=== PATIENT | female | born 1955 | race Caucasian/White ===

== ENCOUNTER 2018-09-18 07:40 | Observation (INO) | payer BC ==
[2018-09-18] MEDS ORDERED: Sodium Chloride 0.9% 10 ML Syringe FLUSH PRN ×2 (07:59→09:25)
[2018-09-18] MEDS ORDERED: Diltiazem 25 MG/5 ML SDV IVPUSH ONE (08:21)
--- NOTE | 2018-09-18 08:21 | CR ---
[id number] RAD/RAD Chest PA And Lateral EXAM: RAD Chest PA And Lateral CLINICAL DATA: SHORTNESS OF BREATH. COUGH. COMPARISON: NO PREVIOUS SIMILAR EXAM IS AVAILABLE. FINDINGS: Surgical clips are seen in the right axillary region. The pulmonary arteries are prominent. The lungs are clear. The cardiomediastinal contour is normal. The regional bones and soft tissues are unremarkable. IMPRESSION: NO ACUTE PROCESS. Dewey Holden MD 09/18/18 0819 Thank you for allowing us to participate in the care of your patient.
--- NOTE | 2018-09-18 08:26 | EDM.PDOC ---
ED HPI GENERAL MEDICAL PROBLEM - General Chief Complaint: Respiratory Problem Stated Complaint: shortness of breath Time Seen by Provider: 09/18/18 08:00 Source of Information: Reports: Patient History Limitations: Reports: No Limitations - History of Present Illness INITIAL COMMENTS - FREE TEXT/NARRATIVE: 63 YO WF presents to ER with shortness of breath and chest tightness which began this am. Pt reports she used her albuterol inhaler and states she thinks it made her breathing worse. Pt states she's had a URI for the last couple of weeks but thought it had resolved prior to this mornings episode. Pt reports chest tightness and some lightheadedness but denies diaphoresis or nausea/ vomiting. Pt denies fever/chills or productive cough. Onset: Today Location: Reports: Chest Quality: Reports: Other (tightness) Improves with: Reports: None Worsens with: Reports: Medication Associated Symptoms: Reports: Chest Pain, Shortness of Breath. Denies: Cough, cough w sputum, Diaphoresis, Fever/Chills, Nausea/Vomiting, Syncope Treatments GROUP CONTRACT ANALYST: Reports: Other Medication(s) Other Treatments GROUP CONTRACT ANALYST: Albuterol - Related Data Allergies Allergy/AdvReac Type Severity Reaction Status Date / Time erythromycin base Allergy Other Verified 09/18/18 07:55 Home Meds: Home Meds Albuterol Sulfate [Albuterol Sulfate Hfa] 2 puff INH Q4H PRN 09/18/18 [History] Social & Family History - Tobacco Use Smoking Status *Q: Current Some Day Smoker Years of Tobacco use: 40 Packs/Tins Daily: 0.2 Used Tobacco, but Quit: No Second Hand Smoke Exposure: No - Caffeine Use Caffeine Use: Reports: Coffee, Tea - Recreational Drug Use Recreational Drug Use: No ED ROS GENERAL - Review of Systems Review Of Systems: See Below Constitutional: Reports: No Symptoms HEENT: Reports: No Symptoms Respiratory: Reports: Shortness of Breath Cardiovascular: Reports: Chest Pain, Lightheadedness. Denies: Palpitations Endocrine: Reports: No Symptoms GI/Abdominal: Reports: No Symptoms : Reports: No Symptoms Musculoskeletal: Reports: No Symptoms Skin: Reports: No Symptoms Neurological: Reports: No Symptoms Psychiatric: Reports: No Symptoms Hematologic/Lymphatic: Reports: No Symptoms Immunologic: Reports: No Symptoms ED EXAM, GENERAL - Physical Exam Exam: See Below Exam Limited By: No Limitations General Appearance: Alert, WD/WN, No Apparent Distress Head: Atraumatic, Normocephalic Neck: Normal Inspection, Supple, Non-Tender, Full Range of Motion Respiratory/Chest: No Respiratory Distress, Lungs Clear, Normal Breath Sounds, No Accessory Muscle Use, Chest Non-Tender Cardiovascular: Normal Peripheral Pulses, No Edema, No Gallop, No JVD, No Murmur , No Rub, Tachycardia, Irregularly Irregular GI/Abdominal: Normal Bowel Sounds, Soft, Non-Tender, No Organomegaly, No Distention, No Abnormal Bruit, No Mass Back Exam: Normal Inspection, Full Range of Motion, NT Extremities: Normal Inspection, Normal Range of Motion, Non-Tender, Normal Capillary Refill, No Pedal Edema Neurological: Alert, Oriented, CN II-XII Intact, Normal Cognition, Normal Gait, Normal Reflexes, No Motor/Sensory Deficits Psychiatric: Normal Affect, Normal Mood Skin Exam: Warm, Dry, Intact, Normal Color, No Rash Lymphatic: No Adenopathy EKG INTERPRETATION EKG Date: 09/18/18 Time: 08:03 Rhythm: A-Fib Rate (Beats/Min): 118 [place]: Normal P-Wave: Absent QRS: Normal ST-T: Normal QT: Normal Comparison: NA - No Prior EKG Course - Vital Signs Last Recorded V/S: Last Vital Signs Temp 36.5 C 09/18/18 07:50 Pulse 92 09/18/18 09:00 Resp 20 09/18/18 07:50 BP 110/47 L 09/18/18 09:00 Pulse Ox 94 L 09/18/18 09:00 - Orders/Labs/Meds Orders: Active Orders 24 hr Category Date Time Status EKG Documentation Completion [RC] ASDIRECTED Care 09/18/18 08:00 Active EKG Documentation Completion [RC] ASDIRECTED Care 09/18/18 08:44 Ordered Peripheral IV Care [RC] . DIRECTED Care 09/18/18 08:00 Active Diltiazem 125 MG in NS 125 ML @ 5 MG/HR (100ml) Med 09/18/18 08:45 Ordered Diltiazem 125 mg Sodium Chloride 0.9% [Normal Saline] 100 ml IV TITRATE Sodium Chloride 0.9% [Saline Flush] Med 09/18/18 07:59 Active 10 ml FLUSH Q8HR PRN Peripheral IV Insertion Adult [OM.PC] Routine Oth 09/18/18 07:59 Ordered EKG 12 Lead [EK] Routine Ther 09/18/18 07:59 Ordered EKG 12 Lead [EK] Routine Ther 09/18/18 08:44 Ordered Medication Orders Diltiazem HCl 125 mg/ Sodium (Chloride) 125 mls @ 5 mls/hr IV TITRATE JOVANY; Protocol Sodium Chloride (Saline Flush) 10 ml FLUSH Q8HR PRN PRN Reason: keep vein open Last Admin: 09/18/18 08:42 Dose: 10 ml Labs: Laboratory Tests 09/18/18 09/18/18 09/18/18 Range/Units 08:05 08:05 08:05 WBC 11.29 H (5.00-10.00) 10^3/uL RBC 5.42 (3.80-5.50) 10^6/uL Hgb 16.2 H (12.0-16.0) g/dL Hct 51.8 H (37.0-47.0) % MCV 95.6 H (82.0-92.0) fL MCH 29.9 (27.0-31.0) pg MCHC 31.3 L (32.0-36.0) g/dL RDW 13.3 (11.5-14.5) % Plt Count 284 (150-400) 10^3/uL MPV 9.6 (7.4-10.4) fL Immature Gran % (Auto) 0.3 (0.0-5.0) % Neut % (Auto) 65.1 (50.0-70.0) % Lymph % (Auto) 26.1 (20.0-40.0) % [place] % (Auto) 7.5 (2.0-8.0) % Eos % (Auto) 0.8 L (1.0-3.0) % Baso % (Auto) 0.2 (0.0-1.0) % Immature Gran # (Auto) 0.03 (0.00-0.50) 10^3/uL Neut # (Auto) 7.35 H (2.50-7.00) 10^3/uL Lymph # (Auto) 2.95 (1.00-4.00) 10^3/uL [place] # (Auto) 0.85 H (0.10-0.80) 10^3/uL Eos # (Auto) 0.09 L (0.10-0.30) 10^3/uL Baso # (Auto) 0.02 (0.00-0.10) 10^3/uL PT 10.3 (8.9-11.4) SEC INR 1.0 (0.9-1.1) APTT 24.1 (23.1-31.9) SEC Sodium 144 (136-145) mmol/L Potassium 3.3 (3.3-5.3) mmol/L Chloride 103 (98-115) mmol/L Carbon Dioxide 33.1 H (21.0-32.0) mmol/L Anion Gap 11.2 (5-15) mmol/L BUN 20 (6-25) mg/dL Creatinine 1.05 (0.51-1.17) mg/dL Est Cr Clr Drug Dosing 51.94 mL/min Estimated GFR (MDRD) 53 mL/min Glucose 104 H (75 - 99) mg/dL Calcium 8.6 L (8.7-10.3) mg/dL Total Bilirubin 0.3 (0.2-1.0) mg/dL AST 16 (15-37) U/L ALT 23 (12-78) U/L Alkaline Phosphatase 88 (46-116) IU/L Creatine Kinase 48 (26-276) U/L CK-MB (CK-2) 1.20 (0.00-4.30) ng/mL Troponin I 0.04 (0.00-0.070) ng/mL B-Natriuretic Peptide (0-100) pg/mL Total Protein 6.8 (6.4-8.2) g/dL Albumin 3.35 (3.00-4.80) g/dL 09/18/18 Range/Units 08:22 WBC (5.00-10.00) 10^3/uL RBC (3.80-5.50) 10^6/uL Hgb (12.0-16.0) g/dL Hct (37.0-47.0) % MCV (82.0-92.0) fL MCH (27.0-31.0) pg MCHC (32.0-36.0) g/dL RDW (11.5-14.5) % Plt Count (150-400) 10^3/uL MPV (7.4-10.4) fL Immature Gran % (Auto) (0.0-5.0) % Neut % (Auto) (50.0-70.0) % Lymph % (Auto) (20.0-40.0) % [place] % (Auto) (2.0-8.0) % Eos % (Auto) (1.0-3.0) % Baso % (Auto) (0.0-1.0) % Immature Gran # (Auto) (0.00-0.50) 10^3/uL Neut # (Auto) (2.50-7.00) 10^3/uL Lymph # (Auto) (1.00-4.00) 10^3/uL [place] # (Auto) (0.10-0.80) 10^3/uL Eos # (Auto) (0.10-0.30) 10^3/uL Baso # (Auto) (0.00-0.10) 10^3/uL PT (8.9-11.4) SEC INR (0.9-1.1) APTT (23.1-31.9) SEC Sodium (136-145) mmol/L Potassium (3.3-5.3) mmol/L Chloride (98-115) mmol/L Carbon Dioxide (21.0-32.0) mmol/L Anion Gap (5-15) mmol/L BUN (6-25) mg/dL Creatinine (0.51-1.17) mg/dL Est Cr Clr Drug Dosing mL/min Estimated GFR (MDRD) mL/min Glucose (75 - 99) mg/dL Calcium (8.7-10.3) mg/dL Total Bilirubin (0.2-1.0) mg/dL AST (15-37) U/L ALT (12-78) U/L Alkaline Phosphatase (46-116) IU/L Creatine Kinase (26-276) U/L CK-MB (CK-2) (0.00-4.30) ng/mL Troponin I (0.00-0.070) ng/mL B-Natriuretic Peptide 83 (0-100) pg/mL Total Protein (6.4-8.2) g/dL Albumin (3.00-4.80) g/dL Meds: Medications Generic Name Dose Route Start Last Admin Trade Name Freq PRN Reason Stop Dose Admin Diltiazem HCl 125 mg/ Sodium 125 mls @ 5 mls/hr 09/18/18 08:45 Chloride IV TITRATE JOVANY Protocol 5 MG/HR Sodium Chloride 10 ml 09/18/18 07:59 09/18/18 08:42 Saline Flush FLUSH 10 ml Q8HR PRN Administration keep vein open Discontinued Medications Generic Name Dose Route Start Last Admin Trade Name Freq PRN Reason Stop Dose Admin Diltiazem HCl 20 mg 09/18/18 08:21 09/18/18 08:35 Diltiazem IVPUSH 09/18/18 08:22 20 mg ONETIME ONE Administration - Radiology Interpretation Free Text/Narrative:: CXR- NAD - Re-Assessments/Exams Free Text/Narrative Re-Assessment/Exam: 09/18/18 08:45 after cardizem 20mg IV pt HR-81 BP-110/60 and Pt asymptomatic Departure - Departure Time of Disposition: 09:22 Disposition: Refer to Observation Condition: Fair Clinical Impression: Atrial fibrillation Qualifiers: Atrial fibrillation type: persistent Qualified Code(s): I48.1 - Persistent atrial fibrillation - Discharge Information Referrals: PCP,None [Primary Care Provider] - Forms: ED Department Discharge - My Orders Last 24 Hours: My Active Orders 09/18/18 07:59 Sodium Chloride 0.9% [Saline Flush] 10 ml FLUSH Q8HR PRN Peripheral IV Insertion Adult [OM.PC] Routine EKG 12 Lead [EK] Routine 09/18/18 08:00 EKG Documentation Completion [RC] ASDIRECTED Peripheral IV Care [RC] . DIRECTED 09/18/18 08:44 EKG Documentation Completion [RC] ASDIRECTED EKG 12 Lead [EK] Routine 09/18/18 08:45 Diltiazem 125 MG in NS 125 ML @ 5 MG/HR (100ml) Diltiazem 125 mg Sodium Chloride 0.9% [Normal Saline] 100 ml IV TITRATE - Assessment/Plan Last 24 Hours: My Active Orders 09/18/18 07:59 Sodium Chloride 0.9% [Saline Flush] 10 ml FLUSH Q8HR PRN Peripheral IV Insertion Adult [OM.PC] Routine EKG 12 Lead [EK] Routine 09/18/18 08:00 EKG Documentation Completion [RC] ASDIRECTED Peripheral IV Care [RC] . DIRECTED 09/18/18 08:44 EKG Documentation Completion [RC] ASDIRECTED EKG 12 Lead [EK] Routine 09/18/18 08:45 Diltiazem 125 MG in NS 125 ML @ 5 MG/HR (100ml) Diltiazem 125 mg Sodium Chloride 0.9% [Normal Saline] 100 ml IV TITRATE Assessment:: 1. Afib RVR- controlled after cardizem 20mg IV x 1 Plan: 1. admit to obs- Dr Gold 2. cardizem 30mg PO Q6 3. supportive care 4. telemetry
[2018-09-18] MEDS ORDERED: Diltiazem 125 MG in Sodium Chloride 0.9% 100 ML IV SCH (08:45)
[2018-09-18 09:08] LABS: ANION GAP 11.2 mmol/L (5-15)
[2018-09-18] MEDS ORDERED: Diltiazem IR 30 MG Tab PO SCH (11:00)
[2018-09-18] MEDS ORDERED: Lidocaine 2% 100 MG/5 ML Syringe IVPUSH PRN (12:04)
[2018-09-18] MEDS ORDERED: Atropine 0.1 MG/ML 10 ML Syringe IVPUSH PRN (12:04)
[2018-09-18] MEDS ORDERED: Nitroglycerin 0.4 MG Tab.SL SL PRN (12:04)
[2018-09-18] MEDS ORDERED: EPINEPHrine 1:10,000 1 MG/10 ML Syringe IVPUSH PRN (12:04)
[2018-09-18] MEDS: Aspirin 325 MG Tab.EC PO SCH (17:40)
[2018-09-19 07:46] LABS: ANION GAP 11.8 mmol/L (5-15); CHLORIDE,CL 103 mmol/L (98-115); SODIUM,NA 146 mmol/L (136-145)
[2018-09-19] MEDS: Aspirin 325 MG Tab.EC PO SCH (08:27)
--- NOTE | 2018-09-19 08:41 | PCM.DCSUM1 ---
Discharge Summary - Hospital Course Free Text/Narrative:: Gypsy is a healthy, 63 yo F who presented to the ER from work yesterday with racing heart and feeling a little lightheaded. She has no hx of cardiac problems. HR was 144 in the ER and EKG showed atrial fibrillation with RVR. She was given cardizem 20 mg IV and that brought her HR down to the 70's and she was started on diltizem 30 mg PO q 6 hours. Troponin was negative, BNP was normal at 83. CBC and CMP were unremarkable. She had not been ill recently. Around 3:30 pm on 09/18/18 she converted to NSR. Diltiazem oral was discontinued and ASA 325 mg PO was started. She remained in NSR overnight. Discussion was had about anticoagulation and stroke risk with a-fib. [id number] score is 2, however, now that she is in NSR I think a full strength ASA is appropriate for stroke prophylaxis. If, however, she goes back into a- fib would recommend diltiazem 120 mg PO daily as rate control (dose may need to be higher based on rate) as well as Xarelto vs. Eliquis. Will give her a note for work that is is OK to return to work without restrictions on 09/20/18. Modified Calvin Scale: No Symptoms at All Modified Shorty Scale Score: 0 - Discharge Data Discharge Date: 09/19/18 Discharge Disposition: Home, Self-Care 01 Condition: Good - Discharge Diagnosis/Problem(s) (1) Atrial fibrillation SNOMED Code(s): 55276439 ICD Code: I48.91 - UNSPECIFIED ATRIAL FIBRILLATION Status: Acute Current Visit: Yes Qualifiers: Atrial fibrillation type: persistent Qualified Code(s): I48.1 - Persistent atrial fibrillation - Patient Instructions Diet: Regular Diet as Tolerated Activity: As Tolerated - Discharge Plan *PRESCRIPTION DRUG MONITORING PROGRAM REVIEWED*: Not Applicable *COPY OF PRESCRIPTION DRUG MONITORING REPORT IN PATIENT ALEXANDRO: Not Applicable Home Medications: Home Meds Albuterol Sulfate [Albuterol Sulfate Hfa] 2 puff INH Q4H PRN 09/18/18 [History] Aspirin [Ecotrin] 325 mg PO DAILY tab.ec 09/19/18 [Rx] Forms: ED Department Discharge, Return to Work/Inpatient [facility] Referrals: PCP,None [Primary Care Provider] - - Discharge Summary/Plan Comment DC Time >30 min.: No - General Info Date of Service: 09/19/18 Admission Dx/Problem (Free Text: Atrial fibrillation with RVR. - Patient Data Vitals - Most Recent: Last Vital Signs Temp 98.6 F 09/19/18 06:06 Pulse 76 09/19/18 07:35 Resp 18 09/19/18 06:06 BP 121/69 09/19/18 06:06 Pulse Ox 91 L 09/19/18 07:30 Weight - Most Recent: 194 lb 6.4 oz I&O - Last 24 hours: Intake & Output 09/18/18 09/19/18 09/19/18 22:59 06:59 14:59 Intake Total 420 50 Balance 420 50 Lab Results - Last 24 hrs: Laboratory Results - last 24 hr 09/18/18 09/18/18 09/18/18 Range/Units 08:05 08:05 08:22 WBC (5.00-10.00) 10^3/uL RBC (3.80-5.50) 10^6/uL Hgb (12.0-16.0) g/dL Hct (37.0-47.0) % MCV (82.0-92.0) fL MCH (27.0-31.0) pg MCHC (32.0-36.0) g/dL RDW (11.5-14.5) % Plt Count (150-400) 10^3/uL MPV (7.4-10.4) fL Immature Gran % (Auto) (0.0-5.0) % Neut % (Auto) (50.0-70.0) % Lymph % (Auto) (20.0-40.0) % [place] % (Auto) (2.0-8.0) % Eos % (Auto) (1.0-3.0) % Baso % (Auto) (0.0-1.0) % Immature Gran # (Auto) (0.00-0.50) 10^3/uL Neut # (Auto) (2.50-7.00) 10^3/uL Lymph # (Auto) (1.00-4.00) 10^3/uL [place] # (Auto) (0.10-0.80) 10^3/uL Eos # (Auto) (0.10-0.30) 10^3/uL Baso # (Auto) (0.00-0.10) 10^3/uL PT 10.3 (8.9-11.4) SEC INR 1.0 (0.9-1.1) APTT 24.1 (23.1-31.9) SEC Sodium 144 (136-145) mmol/L Potassium 3.3 (3.3-5.3) mmol/L Chloride 103 (98-115) mmol/L Carbon Dioxide 33.1 H (21.0-32.0) mmol/L Anion Gap 11.2 (5-15) mmol/L BUN 20 (6-25) mg/dL Creatinine 1.05 (0.51-1.17) mg/dL Est Cr Clr Drug Dosing 51.94 mL/min Estimated GFR (MDRD) 53 mL/min Glucose 104 H (75 - 99) mg/dL Calcium 8.6 L (8.7-10.3) mg/dL Total Bilirubin 0.3 (0.2-1.0) mg/dL AST 16 (15-37) U/L ALT 23 (12-78) U/L Alkaline Phosphatase 88 (46-116) IU/L Creatine Kinase 48 (26-276) U/L CK-MB (CK-2) 1.20 (0.00-4.30) ng/mL Troponin I 0.04 (0.00-0.070) ng/mL B-Natriuretic Peptide 83 (0-100) pg/mL Total Protein 6.8 (6.4-8.2) g/dL Albumin 3.35 (3.00-4.80) g/dL 09/19/18 09/19/18 Range/Units 07:20 07:20 WBC 7.97 (5.00-10.00) 10^3/uL RBC 4.77 (3.80-5.50) 10^6/uL Hgb 14.3 D (12.0-16.0) g/dL Hct 46.9 (37.0-47.0) % MCV 98.3 H (82.0-92.0) fL MCH 30.0 (27.0-31.0) pg MCHC 30.5 L (32.0-36.0) g/dL RDW 13.4 (11.5-14.5) % Plt Count 214 (150-400) 10^3/uL MPV 9.0 (7.4-10.4) fL Immature Gran % (Auto) 0.1 (0.0-5.0) % Neut % (Auto) 59.0 (50.0-70.0) % Lymph % (Auto) 29.2 (20.0-40.0) % [place] % (Auto) 10.0 H (2.0-8.0) % Eos % (Auto) 1.4 (1.0-3.0) % Baso % (Auto) 0.3 (0.0-1.0) % Immature Gran # (Auto) 0.01 (0.00-0.50) 10^3/uL Neut # (Auto) 4.70 (2.50-7.00) 10^3/uL Lymph # (Auto) 2.33 (1.00-4.00) 10^3/uL [place] # (Auto) 0.80 (0.10-0.80) 10^3/uL Eos # (Auto) 0.11 (0.10-0.30) 10^3/uL Baso # (Auto) 0.02 (0.00-0.10) 10^3/uL PT (8.9-11.4) SEC INR (0.9-1.1) APTT (23.1-31.9) SEC Sodium 146 H (136-145) mmol/L Potassium 4.4 (3.3-5.3) mmol/L Chloride 103 (98-115) mmol/L Carbon Dioxide 35.6 H (21.0-32.0) mmol/L Anion Gap 11.8 (5-15) mmol/L BUN 15 (6-25) mg/dL Creatinine 0.83 (0.51-1.17) mg/dL Est Cr Clr Drug Dosing 65.71 mL/min Estimated GFR (MDRD) > 60 mL/min Glucose 95 (75 - 99) mg/dL Calcium 8.4 L (8.7-10.3) mg/dL Total Bilirubin (0.2-1.0) mg/dL AST (15-37) U/L ALT (12-78) U/L Alkaline Phosphatase (46-116) IU/L Creatine Kinase (26-276) U/L CK-MB (CK-2) (0.00-4.30) ng/mL Troponin I (0.00-0.070) ng/mL B-Natriuretic Peptide (0-100) pg/mL Total Protein (6.4-8.2) g/dL Albumin (3.00-4.80) g/dL Med Orders - Current: Current Medications Aspirin (Ecotrin) 325 mg PO DAILY [facility] Last Admin: 09/19/18 08:27 Dose: 325 mg Atropine Sulfate (Atropine 0.1 Mg/Ml) 0 mg IVPUSH ASDIRECTED PRN PRN Reason: Heart Diltiazem HCl (Cardizem) 30 mg PO Q6HR [facility] Last Admin: 09/18/18 10:44 Dose: 30 mg Epinephrine HCl (Epinephrine 1:10,000) 1 mg IVPUSH ASDIRECTED PRN PRN Reason: Heart Lidocaine HCl (Xylocaine 2%) 0 mg IVPUSH ASDIRECTED PRN PRN Reason: Heart Nitroglycerin (Nitrostat) 0.4 mg SL ASDIRECTED PRN PRN Reason: Heart Sodium Chloride (Saline Flush) 10 ml FLUSH Q8HR PRN PRN Reason: keep vein open Last Admin: 09/19/18 08:28 Dose: 10 ml Discontinued Medications Diltiazem HCl (Diltiazem) 20 mg IVPUSH ONETIME ONE Stop: 09/18/18 08:22 Last Admin: 09/18/18 08:35 Dose: 20 mg Diltiazem HCl 125 mg/ Sodium (Chloride) 125 mls @ 5 mls/hr IV TITRATE [facility]; Protocol Sodium Chloride (Saline Flush) 10 ml FLUSH Q8HR PRN PRN Reason: keep vein open Last Admin: 09/18/18 08:42 Dose: 10 ml - Exam General: Reports: Alert, Oriented, Cooperative, No Acute Distress Lungs: Reports: Clear to Auscultation, Normal Respiratory Effort Cardiovascular: Reports: Regular Rate, Regular Rhythm, No Murmurs
== END 2018-09-19 10:00 | disposition home or self-care (01) ==
LOC: KA.ED 07:40 → KA.MS 09:25
PROVIDERS: ADMIT Physician Assistant Medical; ATTEND Internal Medicine
DX: I48.1 Persistent atrial fibrillation (principal); F17.200 Nicotine dependence, unspecified, uncomplicated; Z88.1 Allergy status to other antibiotic agents
CPT/HCPCS: 36415; 71046; 80048; 80053; 82550; 82553; 83880; 84484; 85025; 85610; 85730; 93005; 96374; 99285-25; A9270-GY; G0378; J3490

== ENCOUNTER 2023-09-16 11:35 | Emergency (ER) | payer MEDICARE, OTHER ==
[2023-09-16] MEDS: EPINEPHrine 0.3 MG/0.3 ML Pen Autoinjector IM ONE (11:37)
[2023-09-16] MEDS: methylPREDNISolone Sodium Succinate 125 MG/2 ML SDV IVPUSH ONE (11:44)
[2023-09-16] MEDS: Albuterol/Ipratropium 3.0-0.5 MG/3 ML Neb Soln NEB ONE (11:48)
[2023-09-16] MEDS: Famotidine 20 MG/2 ML SDV IVPUSH ONE (11:54)
[2023-09-16] MEDS: Ondansetron 4 MG/2 ML SDV IVPUSH ONE ×2 (12:00→14:36)
[2023-09-16 12:38] LABS: ALBUMIN 3.23 g/dL (3.40-5.00); BASOPHILS ABSOLUTE AUTO 0.02 10^3/uL (0.00-0.10); BASOPHILS PERCENT AUTO 0.2 % (0.0-1.0); BILIRUBIN TOTAL 0.4 mg/dL (0.2-1.0); CALCIUM 8.8 mg/dL (8.7-10.3); CARBON DIOXIDE,CO2 35.4 mmol/L (21.0-32.0); CREATININE 0.87 mg/dL (0.51-1.17); EOSINOPHILS ABSOLUTE AUTO 0.25 10^3/uL (0.10-0.30); EST CRCL DRUG DOSING (CG) 58.51 mL/min; HEMATOCRIT 51.9 % (37.0-47.0); IMMATURE GRAN ABSOLUTE AUTO 0.05 10^3/uL (0.00-0.50); IMMATURE GRAN PERCENT AUTO 0.4 % (0.0-5.0); LYMPHOCYTES ABSOLUTE AUTO 7.36 10^3/uL (1.00-4.00); LYMPHOCYTES PERCENT AUTO 59.8 % (20.0-40.0); MEAN CORPUSCULAR HEMOGLOBIN 29.3 pg (27.0-31.0); MEAN CORPUSCULAR HGB CONC 28.9 g/dL (32.0-36.0); MEAN CORPUSCULAR VOLUME 101.4 fL (82.0-92.0); MEAN PLATELET VOLUME 9.4 fL (7.4-10.4); MONOCYTES ABSOLUTE AUTO 0.99 10^3/uL (0.10-0.80); NEUTROPHILS ABSOLUTE AUTO 3.63 10^3/uL (2.50-7.00); NEUTROPHILS PERCENT AUTO 29.6 % (50.0-70.0); PLATELET COUNT,PLT 229 10^3/uL (150-400); POTASSIUM,K 4.4 mmol/L (3.5-5.1); RED BLOOD CELL COUNT 5.12 10^6/uL (3.80-5.50); RED CELL DISTRIBUTION WIDTH 13.1 % (11.5-14.5)
[2023-09-16 13:49] LABS: BASOPHILS ABSOLUTE AUTO 0.02 10^3/uL (0.00-0.10); BASOPHILS PERCENT AUTO 0.1 % (0.0-1.0); EOSINOPHILS ABSOLUTE AUTO 0.05 10^3/uL (0.10-0.30); EOSINOPHILS PERCENT AUTO 0.3 % (1.0-3.0); HEMOGLOBIN 14.8 g/dL (12.0-16.0); IMMATURE GRAN ABSOLUTE AUTO 0.04 10^3/uL (0.00-0.50); IMMATURE GRAN PERCENT AUTO 0.3 % (0.0-5.0); LYMPHOCYTES ABSOLUTE AUTO 1.49 10^3/uL (1.00-4.00); LYMPHOCYTES PERCENT AUTO 10.3 % (20.0-40.0); MEAN CORPUSCULAR HEMOGLOBIN 28.9 pg (27.0-31.0); MEAN CORPUSCULAR VOLUME 99.6 fL (82.0-92.0); MEAN PLATELET VOLUME 9.1 fL (7.4-10.4); MONOCYTES ABSOLUTE AUTO 0.55 10^3/uL (0.10-0.80); MONOCYTES PERCENT AUTO 3.8 % (2.0-8.0); NEUTROPHILS ABSOLUTE AUTO 12.28 10^3/uL (2.50-7.00); NEUTROPHILS PERCENT AUTO 85.2 % (50.0-70.0); PLATELET COUNT,PLT 223 10^3/uL (150-400); RED BLOOD CELL COUNT 5.12 10^6/uL (3.80-5.50); RED CELL DISTRIBUTION WIDTH 13.2 % (11.5-14.5); WHITE BLOOD CELL COUNT,WBC 14.43 10^3/uL (5.00-10.00)
[2023-09-16] MEDS: Ondansetron 4 MG/2 ML SDV ONE (14:35)
[2023-09-16] MEDS: Albuterol/Ipratropium 3.0-0.5 MG/3 ML Neb Soln ONE (14:37)
[2023-09-16] MEDS: Famotidine 20 MG/2 ML SDV ONE (14:37)
[2023-09-16] MEDS: EPINEPHrine 1 MG/ML SDV ONE (14:38)
[2023-09-16 15:10] LABS: APPEARANCE,URINE SLIGHTLY CLOUDY (CLEAR); BILIRUBIN,URINE NEGATIVE (NEGATIVE); COLOR,URINE YELLOW (YELLOW); GLUCOSE,URINE NEGATIVE (NEGATIVE); KETONES,URINE NEGATIVE (NEGATIVE); LEUKOCYTE ESTERASE,URINE NEGATIVE (NEGATIVE); NITRITE,URINE NEGATIVE (NEGATIVE); OCCULT BLOOD,URINE NEGATIVE (NEGATIVE); PH,URINE 5.5 (5.0-9.0); PROTEIN,URINE 100 mg/dL (NEGATIVE); UROBILINOGEN,URINE 0.2 E.U./dL (0.2-1.0)
[2023-09-16 15:15] LABS: BACTERIA,URINE FEW /HPF (NONE TO FEW); EPITHELIAL CELLS,URINE FEW /LPF; HYALINE CASTS,URINE FEW; MUCUS,URINE FEW /LPF (NEGATIVE); RBC,URINE 0-5 /HPF (0-5); WBC,URINE 0-5 /HPF (0-5)
== END 2023-09-16 16:25 | disposition home or self-care (01) ==
LOC: KA.ED 11:35
DX: T78.40XA Allergy, unspecified, initial encounter (principal); J44.9 Chronic obstructive pulmonary disease, unspecified; Z79.82 Long term (current) use of aspirin; Z79.899 Other long term (current) drug therapy; Z88.1 Allergy status to other antibiotic agents
CPT/HCPCS: 36415; 71045; 80053; 81001; 83605; 85025; 94640; 96372; 96374; 96375; 99284; 99285-25; A9270-GY; J2405; J2930; J3490; J7620-GY; Q3014

== ENCOUNTER 2025-03-25 19:40 | Emergency (ER) | payer MEDICARE ==
[2025-03-25] MEDS ORDERED: Sodium Chloride 0.9% 10 ML Syringe FLUSH PRN (19:56)
[2025-03-25 20:08] LABS: BASOPHILS ABSOLUTE AUTO 0.03 10^3/uL (0.00-0.10); BASOPHILS PERCENT AUTO 0.3 % (0.0-1.0); EOSINOPHILS ABSOLUTE AUTO 0.22 10^3/uL (0.10-0.30); EOSINOPHILS PERCENT AUTO 2.5 % (1.0-3.0); IMMATURE GRAN ABSOLUTE AUTO 0.03 10^3/uL (0.00-0.04); IMMATURE GRAN PERCENT AUTO 0.3 % (0.0-0.4); LYMPHOCYTES ABSOLUTE AUTO 2.92 10^3/uL (1.00-4.00); LYMPHOCYTES PERCENT AUTO 33.1 % (20.0-40.0); MEAN PLATELET VOLUME 9.3 fL (7.4-10.4); MONOCYTES ABSOLUTE AUTO 0.66 10^3/uL (0.10-0.80); MONOCYTES PERCENT AUTO 7.5 % (2.0-8.0); NEUTROPHILS ABSOLUTE AUTO 4.97 10^3/uL (2.50-7.00); NEUTROPHILS PERCENT AUTO 56.3 % (50.0-70.0); PLATELET COUNT,PLT 237 10^3/uL (150-400); RED BLOOD CELL COUNT 5.11 10^6/uL (3.80-5.50); RED CELL DISTRIBUTION WIDTH 13.4 % (11.5-14.5); WHITE BLOOD CELL COUNT,WBC 8.83 10^3/uL (5.00-10.00)
[2025-03-25] MEDS: methylPREDNISolone Sodium Succinate 125 MG/2 ML SDV IVPUSH ONE (20:11)
[2025-03-25 20:23] LABS: ALANINE AMINOTRANSFERASE,ALT 23.0 U/L (14-63); ASPARTATE AMNIOTRANSFERASE,AST 15.0 U/L (15-37); BILIRUBIN TOTAL 0.3 mg/dL (0.2-1.0); BLOOD UREA NITROGEN,BUN 22.0 mg/dL (7-18); CARBON DIOXIDE,CO2 37.3 mmol/L (21.0-32.0); CHLORIDE,CL 100.0 mmol/L (98-107); CREATININE 1.06 mg/dL (0.51-1.17); EST CRCL DRUG DOSING (CG) 47.34 mL/min; GLUCOSE RANDOM 157.0 mg/dL (70-140); POTASSIUM,K 4.3 mmol/L (3.5-5.1); PROTEIN TOTAL,TP 7.3 g/dL (6.4-8.2); SODIUM,NA 143.0 mmol/L (136-145)
[2025-03-25 20:24] LABS: ESTIMATED GFR 56.0 mL/min (>=60)
== END 2025-03-25 21:00 | disposition home or self-care (01) ==
LOC: KA.ED 19:40
DX: T78.40XA Allergy, unspecified, initial encounter (principal); J44.9 Chronic obstructive pulmonary disease, unspecified; M19.90 Unspecified osteoarthritis, unspecified site; Z88.1 Allergy status to other antibiotic agents; Z79.82 Long term (current) use of aspirin; Z79.899 Other long term (current) drug therapy; Z99.81 Dependence on supplemental oxygen
CPT/HCPCS: 36415; 80053; 85025; 96361; 96374; 96375; 99284; 99284-25; J1308; J2919; J7030